=== PATIENT | female | born 1985 | race African-American/Black ===

== ENCOUNTER → 2021-10-01 10:06 | Outpatient (CLI) | payer OTHER, SELFPAY ==
[2021-10-01 13:22] LABS: COVID19 -Nasal RAPID Negative (Negative)
== END ==
PROVIDERS: Visit Provider Nurse Practitioner Family
DX: Z20.822 Contact with and (suspected) exposure to COVID-19 (principal)
CPT/HCPCS: 87635; C9803

== ENCOUNTER 2021-10-02 08:59 | Day surgery (SDC) | payer OTHER, SELFPAY ==
[2021-10-02 09:56] VITALS: BP 129/75; PULSE 98; RESP 14; TEMP 36.6; O2SAT 100; BMI 38.4
[2021-10-02] MEDS: SODIUM CHLORIDE 0.9% 1,000 ML 84 ML IV (10:03)
--- NOTE | 2021-10-02 11:01 | PM.HP.1 ---
History of Present Illness History of Present Illness Date Patient Seen: 10/02/21 Chief complaint: SDC Narrative: Heartburn and dysphagia with history of esophageal dilation about a year ago in [place] Patient History Family & Social History Social History: household members spouse Tobacco & Substance use: Smoking Status Never smoker alcohol intake frequency a few times a month Substance Use Type does not use Meds Home Medications and Allergies Home Medications Medication Instructions Recorded Confirmed Type cetirizine 10 mg tablet mg 10/01/21 History cyclobenzaprine 5 mg tablet mg 10/01/21 History lorazepam 0.5 mg tablet (Ativan) See Rx Instructions .ROUTE .COMPLEX 10/01/21 10/02/21 History omeprazole 20 mg capsule,delayed mg 10/01/21 History release Allergies Allergy/AdvReac Type Severity Reaction Status Date / Time sulfamethoxazole Allergy Intermediate ITCHING Verified 10/01/21 16:02 [From Bactrim] trimethoprim [From Bactrim] Allergy Intermediate ITCHING Verified 10/01/21 16:02 Exam Vital Signs (past 8 hours): - 10/02/21 09:56 Temperature 97.8 F Pulse Rate 98 H Respiratory Rate 14 Blood Pressure 129/75 Pulse Oximetry 100 Oxygen Delivery Method Room Air Narrative Exam Narrative: Oropharynx free of lesions Chest clear to auscultation percussion Cardiac exam reveals no S3 or murmur Assessment & Plan Assessment & Plan narrative: Dysphagia on the background of GE reflux with history of dilation need for follow-up endoscopy and possible dilation. Risks, benefits, alternatives have been explained. Time Spent With Patient Critical Care time: I spent a total of [] minutes of critical care time on this patient's care today; this time is exclusive of procedural time.
--- NOTE | 2021-10-02 11:02 | PM.OP.EGD ---
Operative Date/Time/Diagnoses Date of procedure: 10/02/21 Pre-op diagnosis: See indication and findings Procedure & Clinicians Study performed: EGD with possible dilation Indications: Dysphagia and GE reflux Surgeon: Alexis Dalal Procedure Notes Procedure in detail: After informed consent was obtained the patient was placed in left lateral decubitus position. The video upper scope was placed into the oropharynx and with the patient's help swelled into the esophagus. The esophagus stomach and duodenum were carefully examined. On withdrawal retroflexed view the GE junction was performed. The scope was removed. The patient tolerated procedure well. Blood loss none Complications none Sedation mac Findings 1. Fairly wide-open Schatzki's ring at the GE junction. At the end of the procedure this was dilated to [address] [place] [address]. No significant resistance. 2. Normal stomach 3. Normal duodenal bulb and sweep I do not necessarily think that this minimal finding is causing her symptoms of dysphagia. I think she should come back within a month and discuss with me whether not the other workup should be performed.
[2021-10-02 11:27] VITALS: BP 98/61; PULSE 91; RESP 12; TEMP 36.2; O2SAT 98
[2021-10-02 11:32] VITALS: BP 117/79; PULSE 88; RESP 13; O2SAT 100
[2021-10-02 11:37] VITALS: BP 109/77; PULSE 90; RESP 15; TEMP 36.6; O2SAT 100
[2021-10-02 11:56] VITALS: BP 129/91; PULSE 88; RESP 20; TEMP 36.4; O2SAT 100
== END 2021-10-02 12:01 | disposition home or self-care (01) ==
PROVIDERS: PCP Student in an Organized Health Care Education/Training Program; Referring Provider Internal Medicine Gastroenterology; Visit Provider Internal Medicine Gastroenterology
PROC: 0DJ08ZZ Inspection of Upper Intestinal Tract, Via Natural or Artificial Opening Endoscopic (ICD-10-PCS; CPT 43235; principal; 2021-10-02 10:30)
DX: K22.2 Esophageal obstruction (principal); K21.9 Gastro-esophageal reflux disease without esophagitis; R13.10 Dysphagia, unspecified
CPT/HCPCS: 43248; J2704

== ENCOUNTER → 2021-11-14 09:43 | Outpatient (CLI) | payer OTHER, SELFPAY ==
[2021-11-14 12:54] LABS: COVID19 -Nasal RAPID Negative (Negative)
== END ==
PROVIDERS: Family Provider Physician Assistant; PCP Student in an Organized Health Care Education/Training Program; Referring Provider Internal Medicine; Visit Provider Internal Medicine
DX: Z20.822 Contact with and (suspected) exposure to COVID-19 (principal)
CPT/HCPCS: 87635; C9803

== ENCOUNTER → 2021-11-15 08:49 | Outpatient (CLI) | payer OTHER, SELFPAY ==
--- NOTE | 2021-11-20 11:18 | PM.PFT.1 ---
Pulmonary Function Test Referral & Results Date Patient Seen: 11/15/21 Requesting provider: Zeynep Mir Indication: Chest pain Results: The spirometry demonstrates an FVC of 3.13 L which is 89% of predicted. The FEV1 was measured at 2.58 L which is 80% of predicted. The FEV1/FVC ratio was 83 which is 99% of predicted. Following the administration of bronchodilator there was no appreciable change to above normal numbers Lung volumes show an SVC of 2.76 L which is 82% of predicted. The diffusing capacity was measured at 25.37 which is 117% of predicted. The maximum voluntary ventilation was 110% Interpretation: This study demonstrates normal pulmonary function
== END ==
PROVIDERS: Family Provider Physician Assistant; PCP Student in an Organized Health Care Education/Training Program; Referring Provider Physician Assistant; Visit Provider Physician Assistant
DX: R07.89 Other chest pain (principal); J98.8 Other specified respiratory disorders
CPT/HCPCS: 94060; 94726; 94729

== ENCOUNTER 2023-09-17 10:43 | Emergency (ER) | payer OTHER, SELFPAY ==
[2023-09-17 10:58] VITALS: BP 137/90; PULSE 78; RESP 14; TEMP 36.6; O2SAT 100; BMI 42.0
[2023-09-17 11:21] LABS: Add Manual Diff / Slide Review NO; Basophils Absolute Auto 0 /uL (0-100); Basophils Percent Auto 0.6 % (0-2); Eosinophils Absolute Auto 0 /uL (0-450); Eosinophils Percent Auto 0.8 % (2-4); Hematocrit 37.5 % (36-46); Hemoglobin 12.7 g/dL (12.0-16.0); Lymphocytes Absolute Auto 1900 /uL (1100-4500); Lymphocytes Percent Auto 30.9 % (25-40); Mean Corpuscular HGB Conc 33.8 % (30-36); Mean Corpuscular Hemoglobin 31.1 PG (26-34); Mean Corpuscular Volume 91.9 fL (80-100); Monocytes Absolute Auto 300 /uL (0-900); Monocytes Percent Auto 4.2 % (3-14); Neutrophils Absolute Auto 3800 /uL (1500-7000); Neutrophils Percent Auto 63.5 % (50-75); Platelet Count 275 X10^3/uL (150-400); Red Blood Cell Count 4.08 X10^6/uL (4.0-5.2); Red Cell Distribution Width 14.6 % (11.6-14.8)
[2023-09-17 11:34] LABS: Alanine Aminotransferase 21 IU/L (<35); Albumin Globulin Ratio 1.2 (1.0-2.8); Alkaline Phosphatase 61 U/L (38-126); Aspartate Aminotransferase 28 IU/L (14-36); BUN Creatinine Ratio 16.4 (6-22); Bilirubin Total 0.5 mg/dL (0.2-1.3); Blood Urea Nitrogen 12 mg/dL (7-17); Carbon Dioxide 31 mmol/L (22-32); Chloride 106 mmol/L (98-107); Estimated Glomerular Filt Rate > 60 mL/min (>60); Globulin 3.4 g/dL (1.7-4.1); Glucose 105 mg/dL (70-100); HEMOLYSIS < 15 (0-50); Lipase 22 U/L (23-300); Potassium 3.9 mmol/L (3.4-5.1); Sodium 139 mmol/L (137-145); Total Protein 7.4 g/dL (6.3-8.2)
--- NOTE | 2023-09-17 11:50 | DI.US.S_ITS ---
PROCEDURE: US PELVIC COMPLETE INDICATIONS: PAIN. TECHNIQUE: Real-time scanning was performed of the pelvic organs, with image documentation. Additional endovaginal scanning was necessary due to incomplete visualization of the adnexal and endometrial structures by transabdominal scanning. COMPARISON: None. FINDINGS: Uterus: Uterus is anteverted and measures 13.9 x 7.2 x 5.3 cm. The myometrium is heterogeneous. The endometrium is not visualized. There is a right posterior intramural fibroid which measures 2.3 x 1.9 x 2.2 cm and a midline submucosal fibroid which measures 2.4 x 2.4 x 1.9 cm. This fibroid appears markedly increased in vascularity. Ovaries: The right ovary measures 3.0 x 2.2 x 1.6 cm, with a calculated ovarian volume of 5.2 cc. The left ovary measures 3.0 x 2.3 x 1.3 cm, with a calculated ovarian volume of 4.7 cc. The ovaries have a normal sonographic appearance. Less than 12 follicles can be seen in each ovary. No adnexal masses are seen. Other: No pathologic free abdominal or pelvic fluid. IMPRESSION: 1. Limited study with poor characterization of the uterus. 2 uterine fibroids are visualized, 1 of which appears to be hypervascular on Doppler interrogation. Differential considerations include the presence of calcifications; however no radiographic comparisons are available to evaluate for pelvic calcifications. Given the limited evaluation and the questionable hypervascular nature of this fibroid, further characterization with nonemergent gynecologic protocol MRI could be used. We strive to produce accurate, complete, and clear reports of imaging services. To assist us in improving patient care, this report was composed using standard report templates and voice recognition software. Therefore, it may contain abnormal punctuation, insertions and/or omissions. Occasional wrong-word or sound-alike substitutions may occur. Though we review the report and make efforts to correct it, we do recommend that the report be read carefully in proper context to recognize any text inaccuracies. Dictated by: Jo Ann Colon M.D. on 09/17/2023 at 12:47 Approved by: Jo Ann Colon M.D. on 09/17/2023 at 12:52
--- NOTE | 2023-09-17 14:27 | ED.ABDPAIN ---
HPI - Abdominal Pain General Chief Complaint: Abdominal Pain Stated Complaint: Stomach Cramps Time Seen by Provider: 09/17/23 11:49 Source: patient Mode of arrival: Ambulatory History of Present Illness HPI narrative: Patient here for off and on suprapubic discomfort ?kicking discomfort ?for the past 6 days. No urinary complaints. No nausea or vomiting. No fever chills. Patient denies any discomfort at this time. Patient states the discomfort at her line. No history of hernia or bowel obstruction. Denies . Related Data Home Medications Medication Instructions Recorded Confirmed cetirizine 10 mg tablet mg 10/01/21 cyclobenzaprine 5 mg tablet mg 10/01/21 lorazepam 0.5 mg tablet (Ativan) See Rx Instructions .Route .COMPLEX 10/01/21 10/02/21 omeprazole 20 mg capsule,delayed mg 10/01/21 release Allergies Allergy/AdvReac Type Severity Reaction Status Date / Time sulfamethoxazole Allergy Intermediate ITCHING Verified 09/17/23 10:58 [From Bactrim] trimethoprim [From Bactrim] Allergy Intermediate ITCHING Verified 09/17/23 10:58 Review of Systems Review of Systems Narrative: GENERAL: negative chills, fatigue, malaise, fever, sweats. HEENT: negative sinus pain, ear pain, sore throat RESPIRATORY: negative dyspnea, cough CARDIOVASCULAR: negative chest pain, palpitations GASTROINTESTINAL: negative nausea, vomiting, positive abdominal pain : negative dysuria, frequency, hematuria MUSCULOSKELETAL: negative muscle or bony pain SKIN: negative rash, skin lesions NEUROLOGIC: negative weakness, numbness ROS Unobtainable: All systems reviewed & are unremarkable except as noted in HPI and below Patient History Social History household members: spouse Smoking Status: Never smoker Smoking Status: Never smoker alcohol intake frequency: holidays/special occasions only Substance Use Type: does not use Exam Narrative Exam Narrative: GENERAL: in no distress, not toxic not dyspneic HEAD: Normocephalic. EYES: Pupils equal round ENT: Mucous membranes moist. NECK: Trachea midline. CARDIOVASCULAR: Regular rate and rhythm RESPIRATORY: Clear to auscultation. Breath sounds equal bilaterally. No wheezes, rales, or rhonchi. GASTROINTESTINAL: Abdomen soft, non-tender, there is no palpable hernia at the suprapubic area or at the incision line for the . Bowel sounds are present. No peritoneal signs. No pain out of proportion to exam. EXTREMITIES: No gross deformities. BACK: No flank tenderness. NEURO: AOx4. SKIN: Warm and dry PSYCH: Not anxious, is cooperative Initial Vital Signs Initial Vital Signs: Vital Signs Temperature 97.8 F 09/17/23 10:58 Pulse Rate 78 09/17/23 10:58 Respiratory Rate 14 09/17/23 10:58 Blood Pressure 137/90 09/17/23 10:58 Pulse Oximetry 100 09/17/23 10:58 Oxygen Delivery Method Room Air 09/17/23 10:58 Course Orders Ordered: Discontinued Medications Sodium Chloride (Normal Saline 0.9%) 1,000 mls @ 1,000 mls/hr IV BOLUS ONE Stop: 09/17/23 15:25 Last Infusion: 09/17/23 16:17 Dose: Infused Documented By: Admin: 09/17/23 14:37 Dose: 1,000 mls/hr Documented By: TERESA Ondansetron HCl (Ondansetron 4 Mg/2 Ml Inj) 4 mg IV NOW PRN PRN Reason: Nausea And Vomiting Vital Signs Vital signs: Vital Signs - 8 hr 09/17/23 10:58 Temperature 97.8 F Pulse Rate 78 Respiratory Rate 14 Blood Pressure 137/90 Pulse Oximetry 100 Oxygen Delivery Method Room Air MDM - Abdominal Pain Lab Data 09/17/23 11:10 09/17/23 11:10 Labs: Lab Results 09/17/23 Range/Units 11:10 WBC 6.0 (4.5-11.0) X10^3/uL RBC 4.08 (4.0-5.2) X10^6/uL Hgb 12.7 (12.0-16.0) g/dL Hct 37.5 (36-46) % MCV 91.9 (80-100) fL MCH 31.1 (26-34) PG MCHC 33.8 (30-36) % RDW 14.6 (11.6-14.8) % Plt Count 275 (150-400) X10^3/uL Neut % (Auto) 63.5 (50-75) % Lymph % (Auto) 30.9 (25-40) % [place] % (Auto) 4.2 (3-14) % Eos % (Auto) 0.8 L (2-4) % Baso % (Auto) 0.6 (0-2) % Neut # (Auto) 3800 (3472-3975) /uL Lymph # (Auto) 1900 (3111-6669) /uL [place] # (Auto) 300 (0-900) /uL Eos # (Auto) 0 (0-450) /uL Baso # (Auto) 0 (0-100) /uL Sodium 139 (137-145) mmol/L Potassium 3.9 (3.4-5.1) mmol/L Chloride 106 (98-107) mmol/L Carbon Dioxide 31 (22-32) mmol/L BUN 12 (7-17) mg/dL Creatinine 0.73 (0.52-1.04) mg/dL Estimated GFR > 60 (>60) mL/min BUN/Creatinine Ratio 16.4 (6-22) Glucose 105 H (70-100) mg/dL Calcium 9.0 (8.4-10.2) mg/dL Total Bilirubin 0.5 (0.2-1.3) mg/dL AST 28 (14-36) IU/L ALT 21 (<35) IU/L Alkaline Phosphatase 61 (38-126) U/L Total Protein 7.4 (6.3-8.2) g/dL Albumin 4.0 (3.5-5.0) g/dL Globulin 3.4 (1.7-4.1) g/dL Albumin/Globulin Ratio 1.2 (1.0-2.8) Lipase 22 L (23-300) U/L Point of care testing: Point of Care Testing Test Results Negative Urine Dip Bedside Urine Glucose Negative Bedside Urine Bilirubin - Negative Bedside Urine Ketone - Negative Urine Specific [place] 1.020 Bedside Urine Occult Blood - Negative Bedside Urine pH 6.5 Bedside Urine Protein - Negative Bedside Urine Urobilinogen - Negative Bedside Urine Nitrite - Negative Bedside Urine Leukocytes - Negative Esterase Imaging Data US - HELMINTHOLOGIST: Radiologist's Impression: [address] [address] Ultrasound Report Signed Patient: Melecio Patel MR#: [id number] : 1985 Acct:[id number] Age/Sex: 38 / F Date of Service: 09/17/23 Loc: ED Accession Number: [id number] Procedure: US pelvic complete Ordering Provider: Gladys Barry P.A-C PROCEDURE: US PELVIC COMPLETE INDICATIONS: PAIN. TECHNIQUE: Real-time scanning was performed of the pelvic organs, with image documentation. Additional endovaginal scanning was necessary due to incomplete visualization of the adnexal and endometrial structures by transabdominal scanning. COMPARISON: None. FINDINGS: Uterus: Uterus is anteverted and measures 13.9 x 7.2 x 5.3 cm. The myometrium is heterogeneous. The endometrium is not visualized. There is a right posterior intramural fibroid which measures 2.3 x 1.9 x 2.2 cm and a midline submucosal fibroid which measures 2.4 x 2.4 x 1.9 cm. This fibroid appears markedly increased in vascularity. Ovaries: The right ovary measures 3.0 x 2.2 x 1.6 cm, with a calculated ovarian volume of 5.2 cc. The left ovary measures 3.0 x 2.3 x 1.3 cm, with a calculated ovarian volume of 4.7 cc. The ovaries have a normal sonographic appearance. Less than 12 follicles can be seen in each ovary. No adnexal masses are seen. Other: No pathologic free abdominal or pelvic fluid. IMPRESSION: 1. Limited study with poor characterization of the uterus. 2 uterine fibroids are visualized, 1 of which appears to be hypervascular on Doppler interrogation. Differential considerations include the presence of calcifications; however no radiographic comparisons are available to evaluate for pelvic calcifications. Given the limited evaluation and the questionable hypervascular nature of this fibroid, further characterization with nonemergent gynecologic protocol MRI could be used. We strive to produce accurate, complete, and clear reports of imaging services. To assist us in improving patient care, this report was composed using standard report templates and voice recognition software. Therefore, it may contain abnormal punctuation, insertions and/or omissions. Occasional wrong-word or sound-alike substitutions may occur. Though we review the report and make efforts to correct it, we do recommend that the report be read carefully in proper context to recognize any text inaccuracies. Dictated by: Jo Ann Colon M.D. on 09/17/2023 at 12:47 Approved by: Jo Ann Colon M.D. on 09/17/2023 at 12:52 CT scan - abdomen/pelvis: Radiologist's Impression: [address] [address] [address] Scan Report Signed Patient: Melecio Patel MR#: [id number] : 1985 Acct:[id number] Age/Sex: 38 / F Date of Service: 09/17/23 Loc: ED Accession Number: [id number] Procedure: CT abdomen pelvis w con Ordering Provider: Mahesh Dennis MD PROCEDURE: CT ABDOMEN PELVIS W CON INDICATIONS: lower abdominal pain TECHNIQUE: After the administration of intravenous contrast, axial sections acquired from the lung bases to the pubic symphysis. Coronal and sagittal reformats were performed. For radiation dose reduction, the following was used: automated exposure control, adjustment of mA and/or kV according to patient size. COMPARISON: Located Within [facility], , PELVIC COMPLETE, 09/17/2023, 12:00. FINDINGS: Image quality: Diagnostic. Lower Chest: No significant findings. ABDOMEN: Liver: No solid mass. Gallbladder: No radiopaque gallstones or wall thickening. Biliary ducts: No biliary dilation. Pancreas: No ductal dilation. Spleen: Size is within normal limits. Adrenal Glands: No adrenal nodules. Kidneys and Ureters: No hydronephrosis. No solid mass. No complex renal cystic lesion which requires follow up. Stomach and Bowel: Normal colonic caliber, without significant wall thickening. The appendix is normal. Peritoneum: No abnormal intraperitoneal fluid. No free air. Ventral Wall: No significant ventral hernia. Abdominal Nodes: No retroperitoneal or mesenteric adenopathy by size criteria. Vessels: Aorta and inferior vena cava are normal in size. PELVIS: Pelvic Organs: Uterus is enlarged. Probable subserosal uterine fibroid at the right margin of the uterine fundus. Endometrial thickening versus submucosal uterine fibroid. Bladder: No bladder wall thickening, accounting for underdistention. Pelvic Nodes: No enlarged lymph nodes. Miscellaneous: No inguinal hernias are seen. Bones: No aggressive osseous abnormality. IMPRESSION: No acute disease process. Enlarged uterus with thickened endometrium versus submucosal uterine fibroid. Recommend non emergent MRI of the pelvis. Dictated by: Tanisha Watts MD, PhD on 09/17/2023 at 15:13 Approved by: Tanisha Watts MD, PhD on 09/17/2023 at 15:19 [facility] Narrative Medical decision making narrative: Patient here for off and on suprapubic discomfort ?kicking discomfort ?for the past 6 days. No urinary complaints. No nausea or vomiting. No fever chills. Patient denies any discomfort at this time. Patient states the discomfort at her line. No history of hernia or bowel obstruction. Denies . After history and exam CBC CMP urinalysis test CT abdomen pelvis IV fluids pelvic ultrasound MDM CC: Pelvic pain Complicating co-morbidities: None Data collected from: Patient Medical records reviewed: No recent visit for this complaint Differential considered: Includes but not limited to hernia bowel obstruction appendicitis kidney stone cystitis UTI Exam documented above, pertinent findings include: Nontender abdomen Lab Test results independently reviewed as above. Pertinent findings: WBC 6.0, negative test. Negative leukocytes negative nitrite Imaging studies independently reviewed: Pelvic ultrasound does show uterine fibroids. Outpatient MRI for further characterization CT imaging abdomen pelvis uterine fibroids noted, outpatient MRI recommended Consultations: None indicated this time Treatments: Normal saline Re-evaluations: 4:00 p.m.. Reviewed results with patient, they are reassuring. She will call her [employer] insurance for referral to OBGYN for outpatient MRI of the pelvis. Not toxic at discharge. Return precautions reviewed. She desires discharge home Discussion: Appropriate for discharge home. Exam and laboratory studies are otherwise reassuring at this time. Pain is controlled. Patient does have resources to follow up for outpatient MRI. Work note provided. No prescriptions indicated this time. She desires discharge home Diagnosis: Pelvic pain/uterine fibroid Discharge Plan Departure Patient Disposition: Home Clinical Impression: Pelvic pain Fibroid, uterine Qualifiers: Uterine leiomyoma location: unspecified location Qualified Code(s): D25.9 - Leiomyoma of uterus, unspecified Instructions: DI for Uterine Fibroids, DI for Pelvic Pain Activity Restrictions/Additional Instructions: Please do contact your primary care or your insurance company to find out referrals for OBGYN services for follow up and also to schedule MRI of the pelvis regarding the fibroids on her uterus. This may be causing your discomfort. At this time your laboratory studies exam and imaging studies are otherwise reassuring. Return if worse if any questions or concerns. May continue Tylenol or ibuprofen for pain. Prescriptions: No Action lorazepam [Ativan] 0.5 mg tablet See Rx Instructions .ROUTE .COMPLEX Rx Instructions: PRN cyclobenzaprine 5 mg tablet cetirizine 10 mg tablet omeprazole 20 mg capsule,delayed release(DR/EC) Referrals: Provider,Wes NELSON [Primary Care Provider] - Stand Alone Forms: Patient Portal/API, Work Release Note
[2023-09-17] MEDS: SODIUM CHLORIDE 0.9% 1,000 ML 1000 ML IV (14:37)
[2023-09-17 16:16] VITALS: BP 136/87; PULSE 87; RESP 18; TEMP 36.7; O2SAT 98
== END 2023-09-17 16:17 | disposition home or self-care (01) ==
PROVIDERS: Emergency Provider Emergency Medicine; Family Provider Physician Assistant
DX: D25.1 Intramural leiomyoma of uterus (principal); R10.2 Pelvic and perineal pain
CPT/HCPCS: 36415; 74177; 76830; 76856; 80053; 81003; 81025; 83690; 85025; 93975; 96360; 96361; 99284; Q9967